=== PATIENT | female | born 1980 | race Caucasian/White ===

== ENCOUNTER 2017-02-23 11:37 | Day surgery (SDC) | payer MEDICAID ==
--- NOTE | 2017-02-11 18:07 | HP ---
PREOPERATIVE HISTORY AND PHYSICAL: DATE OF ADMISSION: 02/23/17 CHIEF COMPLAINT: Right foot pain. HISTORY OF PRESENT ILLNESS: Ольга is a 36-year-old female who has been followed by Dr. Browne for ongoing bilateral foot pain secondary to severe bunion deformities. She states that she has had these all her life and they have progressively gotten worse. She is having difficulty finding footwear that has been comfortable and she is only able to wear wide sneakers at this point. She is interested in surgical intervention for correction of this problem. PAST MEDICAL HISTORY: Asthma, anxiety, agoraphobia, depression, and a history of DVT and PE during . PAST SURGICAL HISTORY: Adenoids and myringotomy tubes as a child. She also had dental surgery for multiple teeth extraction. She reports no complications with anesthesia with these procedures. CURRENT MEDICATIONS: Pulmicort 1 mg/2 mL inhaled as needed. ALLERGIES: BENADRYL, SULFA, PENICILLIN, and FLEXERIL. FAMILY HISTORY: Noncontributory. SOCIAL HISTORY: The patient lives with her boyfriend and children. She is currently unemployed. She smokes 5 cigarettes a day and has smoked for 20 years. She denies alcoholic beverage use. She denies any current drug use. She has smoked marijuana in the past. REVIEW OF SYSTEMS: Constitutional: Negative for recent hospitalizations, fevers, chills, night sweets. Head: Negative for headache, lightheadedness, or balance problems. Cardiovascular: Negative for chest or arm pain with exertion, history of heart attack, heart murmur, heart palpations, high blood pressure. Positive for embolism and DVT. Respiratory: Positive for shortness of breath with exertion secondary to asthma. Negative for chronic cough or COPD. Gastrointestinal: Negative for heartburn, nausea, vomiting, diarrhea, constipation, or GERD. Genitourinary: Negative for night-time urination, frequency of urination, urinary tract infections, or kidney problems. Musculoskeletal: Negative for chronic back pain or recent fractures. Skin: Negative for rashes, lesions, bumps, or sores. Neurologic: Negative for seizure , stroke, or epilepsy. Positive for depression and anxiety. Endocrine: Negative for diabetes or thyroid problems. Hematology: Negative for easy bleeding, bruising, or anemia. PHYSICAL EXAMINATION GENERAL: She is a well-developed, well-nourished, pleasant female in no acute distress at rest. She is alert and oriented x3. She is a little more anxious on exam today. VITAL SIGNS: The patient is 5 feet 4 inches, 164 pounds. Blood pressure 101/74 , respirations 15, pulse 80. HEENT: Normocephalic and atraumatic. Her hearing and vision are grossly intact. She is edentulous with dentures in place. NECK: Her trachea is midline. RESPIRATORY: Lungs are clear to auscultation bilaterally. No wheezes, rales, or rhonchi. CARDIOVASCULAR: Regular rate and rhythm. No murmurs, rubs, or gallops. Normal S1 and S2. ABDOMEN: Soft, nondistended, and nontender. Normal bowel sounds. EXTREMITIES: Exam of the right lower extremity: Skin is intact without abrasions or open wounds. She has a significant hallux valgus deformity with crowding of her second toe, but no overlap or hammer toe deformities. She does have some erythema at the medial eminence, but skin is intact. She is tender to palpation around this area. She has full hindfoot range of motion with 5/5 strength throughout. Her sensation to light touch is intact in all nerve distributions. She has 2+ dorsalis pedis pulse. IMAGING: AP, lateral, and oblique views of the right foot were reviewed and show a wide intermetatarsal angle without valgus deformity. IMPRESSION: Right foot hallux valgus. PLAN/RECOMMENDATIONS: The patient is to undergo a right foot bunion repair by Dr. Browne on 02/23/17. The risks, benefits, and postoperative course were discussed with the patient at length and she would like to proceed. A prescription for oxycodone was sent to her pharmacy for postoperative pain. She was given a knee scooter to use as needed for postop ambulation. She was advised that she will need to take aspirin daily after surgery given her history of pulmonary embolism and deep venous thrombosis as well as smoking. She will follow up in the office in the postoperative phase. All of her questions were answered to her full satisfaction. She is understanding to call if she develops problems or concerns. BRANDIE HEART [id number]/[facility] #: [id number] [facility]
[~2017-02-23 11:37] MED LIST: Buffered Lidocaine 0.9% SYRIN* 5 ML/SYR SYRINGE INTRADERM ONE; Bupivacaine 0.5% SDV PF* 30 ML VIAL ONE; Dexamethasone IV* 4 MG/ML 1 ML (4 MG) IV SLOW PU ONE; Famotidine IV* 10 MG/ML 2 ML (20 mg) IV ONE
[2017-02-23] MEDS ORDERED: Famotidine IV* 10 MG/ML 2 ML (20 mg) ONE ×2 (11:43)
[2017-02-23] MEDS ORDERED: Dexamethasone IV* 4 MG/ML 1 ML (4 MG) ONE ×2 (11:43)
[2017-02-23] MEDS ORDERED: PROCHLORPERAZINE INJ 5 MG/ML 2 ML VIAL IV PRN (11:43)
[2017-02-23] MEDS ORDERED: Clindamycin 900 MG IVPREMIX(* 900 MG/50 ML SDV IV ONE ×2 (11:43)
[2017-02-23] MEDS ORDERED: oxyCODONE/Acetamin 5/325 MG* TAB PO PRN (11:43)
[2017-02-23] MEDS ORDERED: Buffered Lidocaine 0.9% SYRIN* 5 ML/SYR SYRINGE ONE ×2 (11:44)
[2017-02-23] MEDS ORDERED: Bupivacaine 0.5% SDV PF* 30 ML VIAL ONE ×2 (11:48)
[2017-02-23] MEDS ORDERED: fentaNYL* 50 MCG/ML 2 ML VIAL (100 MCG VIAL) ONE ×6 (12:02→13:55)
[2017-02-23] MEDS ORDERED: Midazolam* 1 MG/ML 5 ML VIAL (5 MG) ONE ×2 (12:02)
[2017-02-23] MEDS ORDERED: Propofol* 10 MG/ML 20 ML BTL IV PUSH ONE ×2 (12:04)
[2017-02-23] MEDS ORDERED: Lidocaine 2% PF * 5 ML VIAL ONE ×2 (12:04)
[2017-02-23 12:05] LABS: UR Preg Internal Control QC Line Present
[2017-02-23] MEDS ORDERED: Ketorolac INJ* 30 MG/ML 1 ML VIAL ONE ×2 (12:30)
[2017-02-23] MEDS ORDERED: Ondansetron INJ* 2 MG/ML VIAL ONE ×2 (12:30)
[2017-02-23] MEDS ORDERED: oxyCODONE TAB* 5 MG TAB ONE ×2 (13:55)
[2017-02-23] MEDS: fentaNYL* 50 MCG/ML 2 ML VIAL (100 MCG VIAL) IV PRN ×2 (13:56→14:14)
[2017-02-23] MEDS: oxyCODONE TAB* 5 MG TAB PO PRN ×2 (13:56→13:57)
[2017-02-23 15:06] VITALS: BP 118/68
--- NOTE | 2017-02-24 03:03 | OP ---
DATE OF OPERATION: 02/23/17 - [facility] DATE OF : 84 SURGEON: Nura Browne MD. SWATCH MAKER: Mehnaz Mckeon PA-C. ANESTHESIOLOGIST: Faith Mahoney MD ANESTHESIA: General PRE-OP DIAGNOSIS: Right hallux valgus, adolescent with large IM angle. POST-OP DIAGNOSIS: Right hallux valgus, adolescent with large IM angle. OPERATIVE PROCEDURE: Right [place] bunion repair. DESCRIPTION OF PROCEDURE: The patient was taken to the operating room where a 3 -cm longitudinal incision was made in the dorsal webspace between 1 and 2. Through this incision, we exposed the adductor tendon over the dorsum of the lateral sesamoid. A longitudinal capsulotomy was made just above the sesamoid or just dorsal to the sesamoid, and then a small J incision distal, which allowed reflection of the adductor tendon proximally. A small capsulotomy was made at this level as well. A new incision was made dorsomedially over the proximal metatarsal cuneiform area. We opened up the first TMT joint capsule and distracted the joint. I removed a flat perpendicular to the long axis cut with the sagittal saw removing the distal cartilage from the cuneiform. I then rotated the metatarsal out of its pronated position, probably 15 to 20 degrees, and then cut the base of the first metatarsal into slight valgus to close the osteotomy and correct the IM angle. This was fixed with paired F3 plates, one in the medial longitudinal, one in the dorsal longitudinal aspect. This firmly closed the IM angle. We then made a longitudinal incision along the medial capsule, creating a transverse capsulotomy at the level of the MTP joint. Through this, we removed the redundant medial eminence. I excised redundant capsule and repaired the capsule with 0 Vicryl interrupted sutures. This corrected the hallux valgus and the IM angle. We then irrigated all wounds, closing with 2-0 Vicryl, 3-0 Vicryl and 4-0 nylon, and a compression dressing, plaster splint applied. [id number]/[facility] #: [id number] [facility]
--- NOTE | 2017-02-24 09:55 | RAD ---
INDICATION: Right foot bunion repair COMPARISONS: August 22, 2016 TECHNIQUE: Fluoroscopy was provided for a surgical procedure. Total fluoroscopy time is: 4.6 seconds FINDINGS: Spot images demonstrate internal fixation of the first metatarsal at the TMT joint. IMPRESSION: FLUOROSCOPY WAS PROVIDED FOR A SURGICAL PROCEDURE CPT II Codes: 6045F
== END 2017-02-23 14:45 | disposition home or self-care (01) ==
LOC: OR 11:37
PROVIDERS: ATTEND Orthopaedic Surgery
DX: M20.11 Hallux valgus (acquired), right foot (principal); Z86.718 Personal history of other venous thrombosis and embolism; Z86.711 Personal history of pulmonary embolism; J45.909 Unspecified asthma, uncomplicated; F17.210 Nicotine dependence, cigarettes, uncomplicated
CPT/HCPCS: 76000; 81025; A9270-GY; C1713; C1776; J1100; J1885; J2250; J2405; J2704; J3010

== ENCOUNTER 2017-09-21 10:36 | Day surgery (SDC) | payer OTHER ==
--- NOTE | 2017-09-16 06:20 | HP ---
PREOPERATIVE HISTORY AND PHYSICAL: DATE OF ADMISSION: 09/21/17 PROVIDER: Nura Browne MD * (DICTATED BY BRANDIE HEART) CHIEF COMPLAINT: Left foot pain. HISTORY OF PRESENT ILLNESS: Ольга is a 37-year-old female who has been followed by Dr. Browne for bilateral foot pain secondary to severe bunion deformities. She underwent bunionectomy of the right foot and has done very well. She is now interested in correction of the problem for the left foot as she has found it difficult to find comfortable footwear. PAST MEDICAL HISTORY: Asthma, anxiety, agoraphobia, depression, and a history of DVT and PE during . PAST SURGICAL HISTORY: Adenoids and myringotomy tubes as a child, dental surgery from multiple teeth extractions, right foot bunionectomy. She reports no complications with anesthesia with these procedures. CURRENT MEDICATIONS: 1. Pulmicort 1 mg/2 mL nebulizer inhaled as needed. 2. Latuda 120 mg p.o. daily. 3. [place] 600 mg p.o. q.h.s. ALLERGIES: BENADRYL, SULFA, PENICILLIN, and FLEXERIL. FAMILY HISTORY: Noncontributory. SOCIAL HISTORY: She lives with her boyfriend and children. She is unemployed. She smokes 5 cigarettes a day and has smoked for the past 20 years. She denies alcoholic beverages. She denies any current drug use. She admits to smoking marijuana in the past. REVIEW OF SYSTEMS: A 14-point review of systems was discussed with the patient and negative except discussed in the HPI. PHYSICAL EXAMINATION GENERAL: She is a well-developed, well-nourished female, in no acute distress at rest. She is alert and oriented x3 with appropriate mood and affect. VITAL SIGNS: The patient is 5 feet 4 inches, 185 pounds. Blood pressure 122/82 , pulse 68, respirations 14. HEENT: Normocephalic, atraumatic. Hearing and vision are grossly intact. She is edentulous with dentures in place. NECK: Trachea is midline. RESPIRATORY: Lungs are clear to auscultation bilaterally. No wheezes, rales, or rhonchi. CARDIOVASCULAR: Regular rate and rhythm. No murmurs, rubs, or gallops. Normal S1, S2. ABDOMEN: Soft, nondistended, and nontender. Normal bowel sounds. EXTREMITIES: Exam of the left lower extremity, skin is intact without abrasions or open wounds. She has a significant hallux valgus deformity with crowding of her second toe, but no overlap or hammer toe deformities. She has some erythema at the medial eminence, but the skin envelope is intact. She is tender to palpation around this area. She has full hindfoot range of motion with 5/5 strength throughout. Her sensation to light touch is intact in all nerve distributions. She has a 2+ dorsalis pedis pulse. IMAGING: AP, lateral and oblique views of the left foot were obtained in the office and show wide intermetatarsal angle with hallux valgus deformity. IMPRESSION: Left foot hallux valgus. PLAN: The patient is to undergo left foot bunion repair by Dr. Browne on . The risks, benefits, and postoperative course were discussed with the patient at length and she would like to proceed. All of her questions were answered to her full satisfaction. We will follow up with the patient in the postoperative phase. BRANDIE HEART [id number]/[facility] #: [id number] [facility]
[~2017-09-21 10:36] MED LIST changes: -Bupivacaine 0.5% SDV PF* 30 ML VIAL ONE; -Dexamethasone IV* 4 MG/ML 1 ML (4 MG) IV SLOW PU ONE; -Famotidine IV* 10 MG/ML 2 ML (20 mg) IV ONE
[2017-09-21] MEDS ORDERED: Midazolam* 1 MG/ML 2 ML VIAL (2 MG) ONE (12:50)
[2017-09-21] MEDS ORDERED: fentaNYL* 50 MCG/ML 2 ML VIAL (100 MCG VIAL) ONE ×3 (12:50→14:59)
[2017-09-21] MEDS ORDERED: Bupivacaine 0.5% SDV PF* 10-30ML VIAL ONE (13:15)
[2017-09-21] MEDS ORDERED: Famotidine IV* 10 MG/ML 2 ML (20 mg) ONE (13:22)
[2017-09-21] MEDS ORDERED: Clindamycin 900 MG IVPREMIX(* 900 MG/50 ML SDV IV ONE (13:24)
[2017-09-21] MEDS ORDERED: Dexamethasone IV* 4 MG/ML 1 ML (4 MG) ONE (13:35)
[2017-09-21] MEDS ORDERED: Ketorolac INJ* 30 MG/ML 1 ML VIAL ONE (13:35)
[2017-09-21] MEDS ORDERED: Propofol* 10 MG/ML 20 ML BTL IV PUSH ONE (13:35)
[2017-09-21] MEDS ORDERED: Ondansetron INJ* 2 MG/ML VIAL ONE ×2 (13:35→14:56)
[2017-09-21] MEDS ORDERED: KETAMINE HCL* 50 MG/ML 10 ML VIAL ONE (13:54)
[2017-09-21] MEDS ORDERED: HYDROcodone/ACETAMIN 5-325 MG* 1 TAB PO PRN (14:03)
[2017-09-21] MEDS ORDERED: PROCHLORPERAZINE INJ 5 MG/ML 2 ML VIAL IV PRN (14:03)
[2017-09-21] MEDS ORDERED: Levalbuterol 0.63MG/3ML NEB* UNIT OF USE INH PRN (14:03)
[2017-09-21] MEDS ORDERED: Acetaminophen TAB* 325 MG PO PRN (14:03)
[2017-09-21] MEDS ORDERED: Naloxone* 0.4 MG/ML 1 ML VIAL IV PRN (14:03)
[2017-09-21] MEDS ORDERED: Ondansetron INJ* 2 MG/ML VIAL IV PRN (14:03)
[2017-09-21] MEDS ORDERED: fentaNYL* 50 MCG/ML 2 ML VIAL (100 MCG VIAL) IV PRN (14:03)
[2017-09-21 15:33] VITALS: BP 108/75
--- NOTE | 2017-09-22 07:12 | RAD ---
INDICATION: Curettage COMPARISON: Left foot August 22, 2016 FINDINGS: 1.1 seconds of fluoroscopy were provided for the orthopedics department. Fluoroscopic spot imaging of the left foot were obtained for operative control. CPT II Codes: 6045F (fluoro time doc)
--- NOTE | 2017-09-22 12:16 | OP ---
DATE OF OPERATION: 09/21/17 - [facility] DATE OF : 84 SURGEON: Nura Browne MD EXTRUDER OPERATOR: Mehnaz Mckeon PA-C PRE-OP DIAGNOSIS: Hallux valgus, left side. POST-OP DIAGNOSIS: Hallux valgus, left side. OPERATIVE PROCEDURE: Modified Ke[place] hallux valgus repair with TightRope between the first and second metatarsals. DESCRIPTION OF PROCEDURE: The patient was taken to the operating room, longitudinal incision was made between the first and second metatarsals. Through this incision, we identified the adductor tendon reflecting it away from the lateral border of the sesamoid and also performing a longitudinal capsulotomy between the sesamoid and the metatarsal head. Medially, a longitudinal incision was made over the medial eminence in the mid plane. We reflected the flaps dorsal plantar to protect the nerves and transverse capsulotomy was made at the level of the joint continued in a proximal fashion over the dorsum of the medial eminence. We then resected the medial eminence with microsagittal saw and resected some redundant capsule. We then passed the TightRope over its guidewire from the lateral second metatarsal to the medial first metatarsal. We advanced the metal loop with the passing loop suture and then the final TightRope suture. A button was placed over the lateral second metatarsal with the 2 free ends at the medial first metatarsal. These were passed over about medially and then by squeezing the metatarsals together, this was tied firmly at the mid portion of the first metatarsal. We then repaired the capsulotomy with 0 Vicryl sutures. X-ray intraoperatively performed showed good reduction of the sesamoid position and neutral first MTP joint position. We irrigated soft tissues with 2-0 Vicryl and placed 3-0 nylon in the skin and compression dressing applied. [id number]/[facility] #: [id number] [facility]
== END 2017-09-21 16:04 | disposition home or self-care (01) ==
LOC: OR 10:36
PROVIDERS: ATTEND Orthopaedic Surgery
DX: M20.12 Hallux valgus (acquired), left foot (principal); F17.210 Nicotine dependence, cigarettes, uncomplicated; J45.909 Unspecified asthma, uncomplicated; F41.8 Other specified anxiety disorders; F40.00 Agoraphobia, unspecified; Z86.718 Personal history of other venous thrombosis and embolism; Z86.711 Personal history of pulmonary embolism
CPT/HCPCS: 76000; 81025; C1713; J1100; J1885; J2250; J2405; J2704; J3010

== ENCOUNTER → 2018-05-10 17:19 | Emergency (ER) | payer OTHER ==
[~2018-05-10 17:19] MED LIST changes: -Buffered Lidocaine 0.9% SYRIN* 5 ML/SYR SYRINGE INTRADERM ONE; +Naproxen TAB* 250 MG PO ONE; +oxyCODONE/Acetamin 5/325 MG* TAB PO ONE
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
[2018-05-10 18:45] VITALS: BP 126/80
== END | disposition home or self-care (01) ==
LOC: ED 17:19
DX: M53.3 Sacrococcygeal disorders, not elsewhere classified (principal)
CPT/HCPCS: 99282

== ENCOUNTER 2018-12-10 16:52 | Emergency (ER) | payer OTHER ==
[2018-12-10] MEDS ORDERED: Clindamycin CAP* 150 MG PO ONE (18:15)
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
[2018-12-10] MEDS ORDERED: traMADol TAB* 50 MG PO ONE (18:18)
[2018-12-10 18:33] VITALS: BP 100/55
== END 2018-12-10 18:31 | disposition home or self-care (01) ==
LOC: ED 16:52
DX: K04.7 Periapical abscess without sinus (principal); F17.210 Nicotine dependence, cigarettes, uncomplicated; Z88.0 Allergy status to penicillin; Z88.2 Allergy status to sulfonamides
CPT/HCPCS: 99282; A9270-GY

== ENCOUNTER 2019-07-29 11:40 | Emergency (ER) | payer OTHER ==
--- NOTE | 2019-07-29 12:29 | UC ---
FLU HPI - HPI Summary HPI Summary: 39-year-old female presents with 4 day history of general malaise, body aches, nasal congestion, runny nose, sore throat, shortness of breath, wheezing, and a productive cough for green sputum. States she has had a couple episodes of posttussive emesis. Patient has history of asthma however states she has been out of her rescue inhaler for a while. She has not received her flu shot. She is a one pack per day smoker. Denies fever, chills, ear pain, dysphagia, chest pain, palpitations, abdominal pain, or nausea. - History of Current Complaint Chief Complaint: UCGeneralIllness Stated Complaint: CHILLS, VOMITING AND ACHES Time Seen by Provider: 07/29/19 12:03 Hx Obtained From: Patient Hx Last Menstrual Period: 06/26/19 Pain Intensity: 8 - Allergy/Home Medications Allergies/Adverse Reactions: Allergies Allergy/AdvReac Type Severity Reaction Status Date / Time cyclobenzaprine Allergy Unknown Verified 07/29/19 11:58 Reaction Details diphenhydramine Allergy Unknown Verified 07/29/19 11:58 [From Benadryl] Reaction Details Penicillins Allergy Unknown Verified 07/29/19 11:58 Reaction Details Sulfa (Sulfonamide Allergy Unknown Verified 07/29/19 11:58 Antibiotics) Reaction Details PMH/Surg Hx/FS Hx/Imm Hx Respiratory History: Asthma Psychological History: Bipolar Disorder Other History Of: Negative For: HIV, Hepatitis B, Hepatitis C, Anticoagulant Therapy - Surgical History Surgical History: Yes Surgery Procedure, Year, and Place: FULL MOUTH EXTRACTION 2012 [place]. RIGHT FOOT BUN[facility] SURGERY[place] [place] - Family History Known Family History: Positive: Cardiac Disease, Hypertension - Social History Occupation: Unemployed Lives: With Family Alcohol Use: None Alcohol Amount: 1 BEER/DAY Substance Use Type: None Smoking Status (MU): Heavy Every Day Tobacco Smoker Type: Cigarettes Amount Used/How Often: 1/2 TO 3/4 PPD FOR 20 YRS Length of Time of Smoking/Using Tobacco: 20 YRS Have You Smoked in the Last Year: Yes Household Exposure Type: Cigarettes - Immunization History Most Recent Influenza Vaccination: allergic Most Recent Tetanus Shot: unkown Most Recent Pneumonia Vaccination: never Review of Systems All Other Systems Reviewed And Are Negative: Yes Constitutional: Negative: Fever, Chills Eyes: Negative: Drainage, Eye Redness ENT: Positive: Sore Throat, Nasal Discharge, Sinus Congestion. Negative: Ear Ache, Sinus Pain/Tenderness Respiratory: Positive: Shortness Of Breath, Cough, Other - Wheezing Cardiovascular: Negative: Palpitations, Chest Pain Gastrointestinal: Positive: Vomiting - Posttussive. Negative: Abdominal Pain, Nausea Genitourinary: Positive: Negative Musculoskeletal: Positive: Myalgia Neurological: Positive: Negative Is Patient Immunocompromised?: No Physical Exam - Summary Physical Exam Summary: GENERAL APPEARANCE: Alert and cooperative, chronically ill appearing female who appears to be in no acute distress. EYES: Conjunctiva clear. No drainage. EARS: External auditory canals and tympanic membranes clear, hearing grossly intact. NOSE: Moderate nasal congestion. No nasal discharge. THROAT: Mild pharyngeal erythema. No tonsilar inflammation, swelling, exudate, or lesions. Uvula midline. NECK: Neck supple, non-tender without lymphadenopathy. CARDIAC: Normal S1 and S2. No S3, S4 or murmurs. Rhythm is regular. There is no peripheral edema, cyanosis or pallor. Extremities are warm and well perfused. Capillary refill is less than 2 seconds. Peripheral pulses intact. LUNGS: Slightly diminished bilateral breath sounds with diffuse wheezing. No rales or rhonchi noted. ABDOMEN: Positive bowel sounds. Soft, nondistended, nontender. No guarding or rebound. No masses or hepatosplenomegally. MUSKULOSKELETAL: ROM intact to all extremities. No joint erythema or tenderness. Normal muscular development. Normal gait. SKIN: Skin normal color, texture and turgor with no lesions or eruptions. Triage Information Reviewed: Yes Vital Signs: Initial Vital Signs Temp 97.3 F 07/29/19 11:53 Pulse 77 07/29/19 11:53 Resp 18 07/29/19 11:53 BP 96/65 07/29/19 11:53 Pulse Ox 98 07/29/19 11:53 Vital Signs Reviewed: Yes Diagnostics - Radiology No standard instances Radiology Interpretation Completed By: Radiologist Summary of Radiographic Findings: Order Information: CHEST PA LAT 2 VWS. HISTORY: cough, sob. COMPARISONS: September 18, 2013. VIEWS: 4: Frontal dual- energy and lateral views of the chest. The right costophrenic angle is partially cut off. FINDINGS: CARDIOMEDIASTINAL SILHOUETTE: The cardiomediastinal silhouette is normal. JONNA: The jonna are normal. PLEURA: The costophrenic angles are sharp. No pleural abnormalities are noted. The right costophrenic angle is partially cut off. LUNG PARENCHYMA: The lungs are clear. ABDOMEN: The upper abdomen is clear. There is no subphrenic gas. BONES AND SOFT TISSUES: No bone or soft tissue abnormalities are noted. OTHER: None. IMPRESSION: NO ACTIVE CARDIOPULMONARY DISEASE. Re-Evaluation - Re-Evaluation Second Eval Re-Evaluation Time: 13:05 Change: Improved Comment: Post-nebulizer patient reports breathing much easier. Cough subsided. Bilateral breath sounds clear. No rales or rhonchi noted. Flu Course/Dx - Course Course Of Treatment: 39-year-old female presents with 4 day history of general malaise, body aches, nasal congestion, runny nose, sore throat, shortness of breath, wheezing, and a productive cough for green sputum. States she has had a couple episodes of posttussive emesis. Patient has history of asthma however states she has been out of her rescue inhaler for a while. She has not received her flu shot. She is a one pack per day smoker. Denies fever, chills, ear pain, dysphagia, chest pain, palpitations, abdominal pain, or nausea. Afebrile. Vital signs stable. Patient had moderate nasal congestion, mild pharyngeal erythema without tonsillar swelling or exudate, no cervical lymphadenopathy, slightly diminished breath sounds with diffuse wheezing, a nonproductive bronchospastic cough, and otherwise unremarkable exam. Rapid flu test was negative. Chest x-ray showed no acute cardiopulmonary pathology. Patient was given an albuterol nebulizer with improvement in her breathing and cough. Post nebulizer she was noted to have clear bilateral breath sounds. Discussed with patient that her symptoms likely represented a viral upper respiratory infection and am recommending symptomatic treatment at this time including Tessalon Perles 1 capsule every 8 hours as needed for cough. I will also replace her albuterol inhaler 2 puffs every 4-6 hours as needed for any shortness of breath or wheezing. She is to follow-up with her primary care provider in 3 days for recheck of her symptoms. Anticipatory guidance and warning symptoms were reviewed with the patient. Verbalizes understanding and agrees with plan of care. - Differential Dx/Diagnosis Differential Diagnosis/HQI/PQRI: Bronchitis, Influenza, Pneumonia, Upper Respiratory Infection Provider Diagnosis: URI with cough and congestion, Asthma Discharge ED - Sign-Out/Discharge Documenting (check all that apply): Patient Departure All imaging exams completed and their final reports reviewed: Yes - Discharge Plan Condition: Stable Disposition: HOME Prescriptions: Albuterol HFA INHALER* [Ventolin HFA Inhaler*] 2 puff INH Q4H PRN #1 mdi PRN Reason: Sob/Wheezing Benzonatate CAP* [Tessalon 100 MG CAP*] 100 mg PO TID PRN #21 cap PRN Reason: Cough Patient Education Materials: Upper Respiratory Infection (ED) Referrals: No Primary Care Phys,NOPCP [Primary Care Provider] - Additional Instructions: The rapid flu test performed in the clinic today was negative and the chest x- ray was normal. Your history and exam are consistent with a viral upper respiratory infection with exacerbation of your asthma. Viral infections do not respond to antibiotics and are limited to the treatment of symptoms. Use an over the counter decongestant such as Sudafed according to directions to help with the congestion. Use the albuterol inhaler 2 puffs every 4-6 hours as needed for any shortness of breath, wheezing, or coughing fits. Take Tessalon Perles 1 capsule every 8 hours as needed for cough. Take over the counter acetaminophen (Tylenol) or ibuprofen (Advil, Motrin) according to directions as needed for pain or fever. Use salt water gargles several times a day if you have a sore throat. You may also use Chloraseptic spray or Cepacol lonzenges according to directions which contain a numbing medication and can provide some temporary relief from your sore throat. Follow up with your primary care provider in 3 days for a recheck of your symptoms. Seek immediate medical attention in the emergency room if you have fever greater than 100.5 F despite taking acetaminophen or ibuprofen, have chest pain , difficulty breathing, are unable to swallow, or have any worsening of symptoms. - Billing Disposition and Condition Condition: STABLE Disposition: Home
[2019-07-29] MEDS ORDERED: Albuterol 2.5 MG/3 ML NEB.SOL* (0.083%) INH ONE (12:34)
[2019-07-29 12:58] LABS: Influenza A Molecular NEGATIVE (Negative); Influenza B Molecular NEGATIVE (Negative)
[2019-07-29 13:50] VITALS: BP 109/79
== END 2019-07-29 13:50 | disposition home or self-care (01) ==
LOC: UCEAST 11:40
DX: J06.9 Acute upper respiratory infection, unspecified (principal); R05 Cough; R09.81 Nasal congestion; F31.9 Bipolar disorder, unspecified; F17.210 Nicotine dependence, cigarettes, uncomplicated; J45.909 Unspecified asthma, uncomplicated; Z88.8 Allergy status to other drugs, medicaments and biological substances; Z88.0 Allergy status to penicillin; Z88.5 Allergy status to narcotic agent; Z88.2 Allergy status to sulfonamides
CPT/HCPCS: 71046; 84702; 99212; G0463

== ENCOUNTER 2019-09-02 10:18 | Emergency (ER) | payer OTHER ==
[2019-09-02] MEDS ORDERED: Ketorolac INJ* 30 MG/ML 1 ML VIAL IM ONE (10:41)
[2019-09-02] MEDS ORDERED: Lidocaine PATCH 5%* 1 PATCH TRANSDERM ONE (10:41)
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
[2019-09-02 12:00] LABS: Urine Appearance Cloudy; Urine Bilirubin Negative (Negative); Urine Blood 1+ (Negative); Urine Color Yellow; Urine Glucose Negative (Negative); Urine Ketones Negative (Negative); Urine Nitrite Positive (Negative); Urine Protein Negative (Negative); Urine Specific Gravity 1.005 (1.010-1.030); Urine Urobilinogen Negative (Negative)
[2019-09-02 12:03] LABS: Urine Bacteria 1+ (Absent); Urine Red Blood Cell Trace(0-2/hpf) (Absent); Urine Squamous Epithelial Cell Present (Absent); Urine White Blood Cell 3+(>20/hpf) (Absent)
[2019-09-02 12:28] VITALS: BP 96/65
[2019-09-02] MEDS ORDERED: Lidocaine Patch REMOVE* 1 NOTE MISC SCH (21:00)
--- NOTE | 2019-09-04 05:53 | ED ---
Imaging and Labs Follow Up Follow Up Type: Labs/Cultures Labs/Culture Result: urine culture preliminary grew E coli >100,000. Patient Communication/Plan: patient placed on macrobid will wait for final culture for sensitivity. Provider Diagnoses: Back pain, UTI (urinary tract infection)
== END 2019-09-02 12:27 | disposition home or self-care (01) ==
LOC: ED 10:18
DX: N39.0 Urinary tract infection, site not specified (principal); M54.9 Dorsalgia, unspecified; F17.210 Nicotine dependence, cigarettes, uncomplicated
CPT/HCPCS: 72110; 81003; 81015; 87077; 87086; 87186; 99282; A9270-GY; J1885